=== PATIENT | female | born 2000 | race Two or more races ===

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

== ENCOUNTER → 2020-10-09 | Outpatient (REF) | payer OTHER | LOC: M LAB REF 18:49 | PROVIDERS: ATTEND Physician Assistant | DX: H60.312 Diffuse otitis externa, left ear (principal) ==